=== PATIENT | female | born 1940 | race Caucasian/White ===

== ENCOUNTER → 2016-11-11 | Outpatient (CLI) | payer OTHER ==
[~2016-11-11] VITALS: Ht 167.6 cm; Wt 83.2 kg
[~2016-11-11] MED LIST: ACETAMINOPHEN325 M1 PO; ADDERALL 20 MG20 M1 PO; ADDERALL XR 2020 MG PO; ALDACTONE50 MG PO; ASPIRIN81 M2 PO; ATROVENT INHALER INH; ATROVENT30 ML; ATROVENT30 ML NASAL; B COMPLEX-VITA1 EACH PO; B-100 COMPLEX1 EAC1 PO; BACLOFEN 10 MG10 MG PO; CALCIUM 600 +1 EAC1 PO; CARBAMAZEPINE200 M2 PO; CARVEDILOL6.25 MG PO; CEFTIN500 MG PO; DOXYCYCLINE 10100 M1 PO; DUONEB 2.5-0.5 M3 ML INH; FOLTX1 TAB PO; FUROSEMIDE 40 M40 M1 PO; GLYCOLAX POWDER17 G1 PO; HYDROCODONE-APA1 TA1 PO; KLOR-CON 1010 MEQ PO; LEVOTHYROXIN0.175 MG PO; LEVOXYL25 MCG PO; LISINOPRIL10 MG PO; NITROGLYCERIN0.4 MG SUBLING; NORCO 5-325 TA1 EACH PO; PHENTERMINE H37.5 MG PO; PREDNISOLONE 5 M5 M1 PO; PREDNISONE 1 MG1 M1; PRILOSEC 20 MG20 MG PO; REGLAN 10 MG TA10 M1 PO; SPIRONOLACTONE50 MG PO; TRAZODONE 150150 M1 PO; TRAZODONE HCL PO; VITAMIN D-32000 UNIT PO; VITAMIN E400 UNIT PO; VITAMINC500 PO; ZINC LOZENGE25 MG PO; carbatrol PO
--- NOTE | ~2016-11-11 | H ---
[facility] [place] [address] HISTORY AND PHYSICAL Name: CONSTANTINO KAMINSKI Room #: REG [facility].#: [id number] Admission: 11/11/16 Attend Phys: Alfonzo Vargas MD Discharge: Date of : 38 Report #: [id number] THIS REPORT FOR: //name// CC: RAPHAEL Vargas Jose CABRALES DATE OF SERVICE: 11/11/2016 DATE OF SERVICE: 11/11/2016 Followup visit for low back pain with right lumbar radiculopathy, L4-L5. Patient returns to the pain clinic today and would really like an epidural injection. Unfortunately, because of ____, we cannot proceed with this injection. She has been an excellent responder to therapy. Narcotic does not provide series of injections, only single injections at that time, which typically provide lasting relief. Her last injection was almost a year ago. She reported that she had 80% improvement for months at a time. The pain now was once again returning and is severe enough that activity levels are diminished from that already low level due to her COPD. Her pain is 6/10. She is spending more time sitting. Any walking exacerbates pain. She is on around the clock oxygen due to her severe COPD, followed by Dr. Garcia. Dyspnea on exertion is common. MEDICATIONS: Include levothyroxine, hydrocodone 7.5 q. 6 hours, ____, amphetamine, nitroglycerin, spirolactone, prednisone, carvedilol, polyethylene glycol, ascorbic acid, cholecalciferol, vitamin E, calcium, carbamazepine, trazodone, aspirin Lasix, baclofen, potassium. ALLERGIES: CLONAZEPAM, PREGABALIN AND SPIRIVA. PHYSICAL EXAMINATION: She is pleasant female. Blood pressure 132/82, heart rate 66, respirations 14. BMI is 29. She has oxygen on 2 L. She is able to move from sitting to standing position and ambulate with her cane. Her gait is slow, but steady. She does not appear to be a fall risk. She does become dyspneic pretty quickly. Breathing at rest is comfortable with mild expiratory wheezing. Examination of spine reveals tenderness. Straight leg raising is only mildly positive. Majority of the pain radiates down to the right buttock and down the posterior lateral aspect of the leg consistent with L5-S1. X-rays are dated but shows there is degenerative disk disease of the lumbar spine at multiple levels. She has a small right L5-S1 paracentral disk extrusion extending posterior to the L5 vertebral body, [place] [address] HISTORY AND PHYSICAL Name: CONSTANTINO KAMINSKI Room #: REG [facility].#: [id number] Admission: 11/11/16 Attend Phys: Alfonzo Vargas MD Discharge: Date of : 39 Report #: [id number] offending. ____ she is not a surgical candidate. IMPRESSION: Lumbar radiculopathy related to L5-S1 disk and degenerative disk disease above. RECOMMENDATIONS: Epidural steroid injection. She is an appropriate candidate for all right reasons, we were providing a very useful treatment and therapy that have shown benefit in the past and there are few alternatives. We would like to avoid any opioid medication given her breathing and opioid issues of [place]. Plan is to follow up as soon as possible for epidural steroid injection. By: [id number] Alfonzo Vargas MD /nt
[2016-11-11 12:47] VITALS: BP 132/82
== END ==
LOC: PAIN 07:40
DX: M51.17 Intervertebral disc disorders with radiculopathy, lumbosacral region (principal); J44.9 Chronic obstructive pulmonary disease, unspecified

== ENCOUNTER → 2016-11-21 | Outpatient (CLI) | payer OTHER ==
[~2016-11-21] VITALS: Ht 170.2 cm; Wt 70.8 kg
--- NOTE | ~2016-11-21 | HPC ---
[facility] [place] [address] PAIN MANAGEMENT CONSULTATION Name: CONSTANTINO KAMINSKI [facility] [id number] Admission: 11/21/16 Attend Phys: Alfonzo Vargas MD Discharge: Date of : 39 Report #: [id number] THIS REPORT FOR: //name// CC: Williams Vargas DATE OF SERVICE: 11/21/2016 Followup visit for lumbar radiculopathy on the right, L4-L5 and L5-S1. The patient returns to the pain clinic today for transforaminal epidural injection. Preauthorization was obtained and she is anxious to proceed. She was seen just one week ago on 11/11/2016. There have been no changes in her presentation. The patient reports that her pain intensity is 6, low back, right buttock, right leg. Pain follows into the buttock and into the leg. She has right-sided L5-S1 paracentral disk extrusion extended posteriorly and to the L5 vertebral body, likely to culprit. IMPRESSION: Lumbar radiculopathy secondary to L5-S1 disk herniation, degenerative disk disease. PROCEDURE: Right L5-S1 transforaminal epidural injection under fluoroscopic guidance. DESCRIPTION Of PROCEDURE: It was explained to the patient who has had one injection before with good results, risks and benefits identified. She was taken to the fluoroscopic suite for the procedure. She was placed prone, skin was prepped with ChloraPrep. Skin anesthetized over the L5-S1 neural foramen on the right. Triplanar fluoroscopic views were used to advance the needle into the neural foramen. Then, 1 mL of Omnipaque was injected with excellent epidurogram achieved. This was then followed by 3 mL of 0.5% lidocaine mixed with 80 mg triamcinolone. She tolerated the procedure well, although there was quite a bit of paresthesia into the right leg causing temporary discomfort during the injection, which abated quickly. She was observed in recovery room, discharged with a followup visit planned in 3 months. By: [id number] Alfonzo Vargas MD /nt
[2016-11-21 15:03] VITALS: BP 160/62
== END ==
LOC: PAIN 07:10
DX: M54.16 Radiculopathy, lumbar region (principal); M51.16 Intervertebral disc disorders with radiculopathy, lumbar region; Z87.891 Personal history of nicotine dependence

== ENCOUNTER → 2018-07-16 | Outpatient (CLI) | payer OTHER ==
[~2018-07-16] VITALS: Ht 170.2 cm; Wt 81.6 kg
[~2018-07-16] MED LIST changes: +HYDROCODON-ACE1 EAC7 PO; +IBUPROFEN 200200 M1 PO
--- NOTE | ~2018-07-16 | HPC ---
[facility] [place] [address] PAIN MANAGEMENT CONSULTATION Name: CONSTANTINO KAMINSKI Room #: REG [facility].#: [id number] Admission: 07/16/18 Attend Phys: Alfonzo Vargas MD Discharge: Date of : 39 Report #: [id number] THIS REPORT FOR: //name// CC: Williams Vargas CHIEF COMPLAINT: Right shoulder pain. HISTORY OF PRESENT ILLNESS: I last saw the patient in 11/2016. She is here today with a new problem, pain in her right shoulder. She has been using a cane now for many years. With the use of the cane, I believe that she has likely developed some shoulder arthropathy and complains that she has difficulty performing day-to-day activities and tasks with the right arm due to that pain. She has pain with abduction, internal and external rotation. She can use the right arm in position of function in order to provide hygiene and eating. The pain, however, is intense. It is an 8/10, sharp, stabbing and aching. It is worse as the day goes on and with activities using the arm. MEDICATIONS: Levothyroxine, omeprazole, nitroglycerin, spironolactone, Advil 600 mg 4 times daily, prednisone 5 mg two tablets daily, carvedilol, GlycoLax, vitamin C, vitamin D, vitamin E, calcium carbonate, carbamazepine, aspirin, Lasix, baclofen, potassium. ALLERGIES: CLONAZEPAM, PREGABALIN, and SPIRIVA. PAST MEDICAL HISTORY: Hypertension, COPD, diffuse osteoarthritis of the spine and multiple joints including shoulders, hips and knees with pain in all. PAST SURGICAL HISTORY: Cholecystectomy, appendectomy, tonsillectomy, adenoidectomy, D and C and hysterectomy. SOCIAL HISTORY: She denies use of tobacco, quitting in 2005. She has not worked since 1997. She is . Her is with her and supportive today. PHYSICAL EXAMINATION: She is pleasant female. VITAL SIGNS: 5 feet 7 inches, 180 pounds, BMI 28.2, blood pressure 157.58, heart rate 68, respirations 14. The pupils are equal, round, and react to light. EOMs are intact. Mucous membranes are moist. NECK: Supple. CHEST: Clear. CARDIAC: Rhythm regular. MUSCULOSKELETAL: Reveals pain in the right shoulder with internal and external rotation. She has localized tenderness there. Significant pain with abduction. Most of the pain is anterior in the shoulder joint. Pain intensity is 8/10 with exam. 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 RECOMMENDATIONS: I do not have x-rays, but I am willing to provide her with an injection today for symptom management. Procedure, risks, and benefits were explained. She would like to proceed. PROCEDURE: Right shoulder injection under fluoroscopic guidance. She was taken to fluoroscopic suite, placed supine. Skin was prepped with ChloraPrep. A 25-gauge needle was gently advanced into the shoulder joint with the advantage of fluoroscopic guidance. I did not use Omnipaque for the injection joint. The needle felt to be well within the joint space, negative aspiration. I gently injected total of 4 mL of 0.5% bupivacaine mixed with 40 mg of triamcinolone. She tolerated the procedure well. Pain score down to 1 or 2 at discharge. Follow up as needed. No medication ordered. By: [id number] Alfonzo Vargas MD /nt
[2018-07-16 13:18] VITALS: BP 157/58
--- NOTE | 2018-07-16 13:46 | NUR ---
Pain Clinic Assessment: 1. History of Osteoarthritis: BACK History of Rheumatoid Arthritis: NO 2. Height: 5 ft. 7 in. 170.2 cm. Weight: 180.0 lb. oz. 81.648 kg. Patient's BMI: 28.2 3. Vital Signs: BP: 157/58 Pulse: 68 Resp: 14 Temp: 02 Sat: 97 ECG Mon: 4. Pain Intensity: 8 RIGHT SHOULDER,6 BACK 5. Fall Risk: Dizziness: N Needs help standing or walking: Y Fallen in the last 3 months: N Fall risk comments: 6. Patient on Blood Thinner: None 7. History of Hypertension: N 8. Opioid Therapy greater than 6 weeks: N Opiate Contract Signed: 9. Risk Assessment Tool Provided: LOW RISK 0/3 10. Functional Assessment Tool: 37/ 11. Recreational Drug Use: Never Drug Type: Tobacco Use: Former Smoker Tobacco Type: Amount or Packs/day: How Many Years: Alcohol Use: No Frequency: Quant:
== END | disposition home or self-care (01) ==
LOC: PAIN 07:08
DX: M12.811 Other specific arthropathies, not elsewhere classified, right shoulder (principal); I10 Essential (primary) hypertension; J44.9 Chronic obstructive pulmonary disease, unspecified; Z90.49 Acquired absence of other specified parts of digestive tract; Z98.890 Other specified postprocedural states; Z90.710 Acquired absence of both cervix and uterus; Z87.891 Personal history of nicotine dependence; Z88.8 Allergy status to other drugs, medicaments and biological substances; Z79.899 Other long term (current) drug therapy; Z79.82 Long term (current) use of aspirin

== ENCOUNTER → 2018-12-07 | Outpatient (CLI) | payer OTHER ==
[~2018-12-07] VITALS: Ht 170.2 cm; Wt 79.4 kg
[~2018-12-07] MED LIST changes: +ADDERALL 20 MG20 MG PO; +TRAZODONE HCL100 MG PO
[2018-12-07 10:00] VITALS: BP 128/46
--- NOTE | 2018-12-07 10:19 | NUR ---
Pain Clinic Assessment: 1. History of Osteoarthritis: BACK History of Rheumatoid Arthritis: NO 2. Height: 5 ft. 7 in. 170.2 cm. Weight: 175.0 lb. oz. 79.380 kg. Patient's BMI: 27.4 3. Vital Signs: BP: 128/46 Pulse: 65 Resp: 14 Temp: 02 Sat: 96 ECG Mon: 4. Pain Intensity: 3 took meds this am 5. Fall Risk: Dizziness: N Needs help standing or walking: Y Fallen in the last 3 months: N Fall risk comments: 6. Patient on Blood Thinner: None 7. History of Hypertension: Y 8. Opioid Therapy greater than 6 weeks: N Opiate Contract Signed: 9. Risk Assessment Tool Provided: LOW RISK 0 10. Functional Assessment Tool: 11. Recreational Drug Use: Never Drug Type: Tobacco Use: Former Smoker Tobacco Type: Amount or Packs/day: How Many Years: Alcohol Use: No Frequency: Quant:
--- NOTE | 2018-12-08 09:00 | HPC ---
[facility] [address] [place] [address] PAIN MANAGEMENT CONSULTATION Name: CONSTANTINO KAMINSKI Room #: REG PH[facility] Valenzuela#: [id number] Admission: 12/07/18 ������������������ Attend Phys: Abril Rutherford Discharge: ������������������ Date of : 39 Report #: [id number] THIS REPORT FOR: //name// CC: Abril Rutherford Williams Banksy CHIEF COMPLAINT: Low back pain, lumbar radiculopathy. HISTORY OF PRESENT ILLNESS: This is a very pleasant 78-year-old female who returns to the pain clinic today for refill of her medications and to discuss a possible epidural steroid injection. She tells me that her pain score is 3 today with her medications, though later in the day it is higher. She tells me most of her pain is in her lower back that radiates down her right leg into her ankle. She does not have pain in her left leg. This pain in her right leg is a sharp, achy pain that is worse with walking and movement and worse in the morning and medications and lying down make it better. She tells me that her right shoulder injection that Dr. Vargas did in July did relieve quite a bit of that pain that she was experiencing. She had 75% relief she thinks in that shoulder for at least 3 months. The patient tells me that she has been in the hospital a couple times recently for problems with her congestive heart failure related to changes in her medications. She has had several medication changes recently involving her Lasix. She thinks that she is finally stable with her health issues. She continues to wear oxygen at 3-4 liters depending on her activity. While she was in the hospital, she did have an epidural by a physician at [facility]. She tells me though that epidural, which was greater than a month ago, did not help her pain at all. It was a midline lumbar epidural per her report. ALLERGIES: SPIRIVA, KLONOPIN, LAMISIL and LYRICA. CURRENT LIST OF MEDICATIONS: Adderall 20 mg t.i.d., trazodone 100 mg at bedtime, hydrocodone 5/325 b.i.d., ibuprofen p.r.n., Synthroid 175 mcg daily, omeprazole 20 mg daily, prednisone 5 mg daily, carvedilol 6.25 b.i.d., MiraLax, vitamin C, vitamin D, vitamin E, calcium, oxcarbazepine 400 mg b.i.d., aspirin, Lasix 20 mg b.i.d., baclofen 10 mg p.r.n. and potassium. PQRS: 1. She has a history of osteoarthritis in her lumbar spine. Denies any rheumatoid arthritis. 2. Height is 5 feet 7 inches, weight is 175 and BMI is 27. 3. VITAL SIGNS: Blood pressure 128/46, pulse is 64, respirations 14 and oxygen level is 96. 4. Pain score is 3/10. 5. Fall risk. Denies dizziness. Does need help walking and she is in a wheelchair today and has not fallen in the last [address] [address] PAIN MANAGEMENT CONSULTATION Name: CONSTANTINO KAMINSKI Room #: REG [facility] Nicolas#: [id number] Admission: 12/07/18 ������������������ Attend Phys: Abril Rutherford Discharge: ������������������ Date of : 39 Report #: [id number] 6. The patient is not on any blood thinners, does take medicine for hypertension. 7. Opioid therapy is greater than 6 weeks. We will have her sign an opioid contract today. Her risk assessment tool is low. Functional assessment is 37/70. 8. Recreational drug use, she denies. She is a former smoker and does not drink alcohol. PHYSICAL EXAMINATION: GENERAL: This is a very pleasant female who is well-developed and well-nourished. She appears her stated age. Placing her pain score today at 3/10. She is alert and oriented. HEENT: Normocephalic and atraumatic. Extraocular eye muscles are intact. Mucous membranes are moist. Hearing is adequate. Wearing 3l nasal cannal oxygen. NECK: Without JVD or adenopathy. MUSCULOSKELETAL: She is able to move from sitting to standing position with the assistance of the chair. She does have a cane that she uses for ambulation, though she is in a wheelchair today. She has tenderness in her spine. Her straight leg raising is mildly positive. Her pain radiates from her right buttock and right hip down the posterolateral aspect of the right leg consistent with the L5-S1 dermatomal distribution. Pain does not go past her ankle. She has no pain on the left leg today. The patient's gait is slow and steady, though she is in a wheelchair for most of her visit today. Her lower extremity strength judged to be 4/5 bilaterally. IMPRESSION: 1. Lumbar radiculopathy, L5-S1, greater on the right than the left. 2. Degenerative disk disease. 3. Right shoulder pain. 4. Chronic obstructive pulmonary disease, on 3 liters nasal cannula. We reviewed the fact that opiate medications are being used to provide analgesia adequate to support activities of daily living, not attempting to achieve a specific pain score on the 0-10 Visual Analog Scale. The current opiate medications are providing sufficient analgesia to allow the patient to participate in activities of daily living. The patient is not exhibiting any aberrant behavior suggestive of drug diversion. The patient is not having any adverse reactions to medications. The patient is not suffering from daytime somnolence or mental acuity changes. The patient is managing opiate-induced constipation with appropriate [id number] agents and dietary considerations. The patient was counseled on concern for caution with operating a motor vehicle while using opiate medications. A physical exam was performed and the patient's functional status was evaluated. All patients with back pain were advised against the bed rest greater than [address] [address] PAIN MANAGEMENT CONSULTATION Name: CONSTANTINO KMAINSKI Room #: REG [facility]..#: [id number] Admission: 12/07/18 ������������������ Attend Phys: Abril Rutherford Discharge: ������������������ Date of : 39 Report #: [id number] days and were advised to return to normal activities. Pain score assessment was noted and the treatment plan was reviewed with the patient. All current medications, both prescribed and OTC were reviewed and reconciled on the electronic medical record. Tobacco screening was accomplished and smoking cessation was advised when indicated. BMI was noted and diet/exercise modification was recommended for all patients following outside normal parameters. I reviewed with the patient today their responsibilities to safeguard prescription medications, reviewed their responsibility to utilize medications only as prescribed by the physician. They are to seek and receive pain medications only from 1 physician group ([facility]). They are to use 1 pharmacy and keep the clinic informed if they change pharmacies. Their responsibilities include making followup visits in a timely fashion and to avoid abrupt discontinuation of medication usage. Their responsibilities further include bringing their medications (bottles from the pharmacy with residual pills) to the visit for possible confirmation of pill counts and the patient understands it is their responsibility to submit to random drug screens to ensure both that the medications prescribed are present, and that no other controlled substances are present. All prescriptions provided today were generated electronically. PLAN: 1. We discussed treatment options with the patient today. The patient would like a refill of her medications. She currently takes hydrocodone 5/325 about 2 times a day to help relieve some of her ongoing pain issues. Scripts given for #60 for today and 4-week release. I did have the patient sign an opioid agreement since it seems like she has been taking this now on a daily basis for greater than 6 months. She verbalizes understanding. 2. The patient wishes to have an epidural. She has found these very beneficial in the past, though the one that she had most recently at [facility] did not relieve her pain that is in her right leg radiating down the L5-S1 distribution. After discussion with Dr. Vargas and our examination, plan to proceed with authorization for a right transforaminal epidural steroid injection at the L5 dermatomal distribution. We will seek authorization and an appointment will be set up for this procedure. 3. Dr. Alfonzo Vargas did come and collaborate care today and see the patient. ��������������������������������������������� <ELECTRONICALLY SIGNED> ���������������������������������������� By: Abril Rutherford ��������������������������������������������� 12/08/18 0900 [id number] Abril Rutherford /nt
== END ==
LOC: PAIN 10-12 06:51
DX: M51.16 Intervertebral disc disorders with radiculopathy, lumbar region (principal); M25.511 Pain in right shoulder; J44.9 Chronic obstructive pulmonary disease, unspecified; Z79.899 Other long term (current) drug therapy

== ENCOUNTER → 2018-12-24 | Outpatient (CLI) | payer OTHER ==
[~2018-12-24] VITALS: Ht 170.2 cm; Wt 77.4 kg
[~2018-12-24] MED LIST changes: +MAGOX 400400 MG PO; +MUCINEX600 MG PO
[2018-12-24 10:43] VITALS: BP 156/54
--- NOTE | 2018-12-24 10:50 | NUR ---
Pain Clinic Assessment: 1. History of Osteoarthritis: BACK History of Rheumatoid Arthritis: NO 2. Height: 5 ft. 7 in. 170.2 cm. Weight: 170.6 lb. oz. 77.384 kg. Patient's BMI: 26.7 3. Vital Signs: BP: 156/54 Pulse: 57 Resp: 16 Temp: 02 Sat: 998 ECG Mon: 4. Pain Intensity: 4 5. Fall Risk: Dizziness: N Needs help standing or walking: Y Fallen in the last 3 months: N Fall risk comments: 6. Patient on Blood Thinner: None 7. History of Hypertension: Y 8. Opioid Therapy greater than 6 weeks: N Opiate Contract Signed: 9. Risk Assessment Tool Provided: LOW RISK 0 10. Functional Assessment Tool: 11. Recreational Drug Use: Never Drug Type: Tobacco Use: Former Smoker Tobacco Type: Amount or Packs/day: How Many Years: Alcohol Use: No Frequency: Quant:
--- NOTE | 2019-01-05 17:25 | HPC ---
[facility] [place] [address] PAIN MANAGEMENT CONSULTATION Name: CONSTANTINO KAMINSKI Room #: REG [facility].#: [id number] Admission: 12/24/18 ������������������ Attend Phys: Alfonzo Vargas MD Discharge: ������������������ Date of : 39 Report #: [id number] THIS REPORT FOR: //name// CC: Williams Vargas DATE OF SERVICE: 12/24/2018 REASON FOR VISIT: Followup visit for chronic low back pain with radiculopathy on the right L5-S1 distribution. HISTORY OF PRESENT ILLNESS: The patient presents to clinic today complaining of pain across her low back with an L5-S1 radicular component. She had an epidural injection while in [facility]. It was midline injection provided very little relief. She is here today for a transforaminal injection, which I believe will provide more relief with the medication, presented more to the lateral recess. I discussed the procedure with her in some detail. I reviewed her x-ray studies. She has multilevel degenerative changes from the study that we have available. As far back as 2014, there was a probable small right L5-S1 paracentral disk extrusion. This was likely at that time cause of some right-sided radiculopathy. The pain is now worsening and is affecting her day-to-day activities including weightbearing. She scores the intensity of pain is 4/10. PQRS REVIEW: 1. History of osteoarthritis particularly lumbar spondylosis and low back. 2. BMI of 26.7. 3. She does not have hypertension, but has a history of treatment with Dr. Fields. 4. She is on no blood thinners. 5. She has completed an opioid risk tool scoring 0. 6. She is on opioid therapy and has completed an opioid risk tool. She uses very little hydrocodone 5/325 no more than one to two tablets daily. She denies side effects, carefully safeguards her medications. 7. She denies use of tobacco or alcohol. PHYSICAL EXAMINATION: GENERAL: She is a pleasant female in a wheelchair. VITAL SIGNS: Her blood pressure is 156/54, heart rate 57, and respirations 16. BMI is 26.7. She has difficulty removing sitting to standing. She has significant range of motion limitations in the lumbar spine with pain in forward flexion, extension, and rotation. There is some slight scoliosis. Tenderness across the lumbosacral segment was present. Straight leg raising reproduces pain in the right hip and down the leg in the L5-S1 distribution. [address] [address] PAIN MANAGEMENT CONSULTATION Name: CONSTANTINO KAMINSKI Room #: REG [facility]#: [id number] Admission: 12/24/18 ������������������ Attend Phys: Alfonzo Vargas MD Discharge: ������������������ Date of : 38 Report #: [id number] IMPRESSION: L5-S1 radiculopathy. PROCEDURE: L5-S1 transforaminal epidural injection. DESCRIPTION OF PROCEDURE: She was taken to fluoroscopic suite, placed prone, skin prepped with ChloraPrep. Skin anesthetized over the L5-S1 interspace. A 22-gauge Tuohy epidural needle advanced into the neural foramen using triplanar fluoroscopic views. There was no blood on CSF aspirate. A 1 mL of Omnipaque was injected. Good spread of dye observed in the epidural space followed by 3 mL of 0.5% lidocaine mixed with 80 mg triamcinolone. She tolerated the procedure well and was observed for 45 minutes and discharged. Followup visit planned as needed. ��������������������������������������������� <ELECTRONICALLY SIGNED> ���������������������������������������� By: Alfonzo Vargas MD ��������������������������������������������� 01/05/19 1725 [id number] Alfonzo Vargas MD /nt
== END | disposition home or self-care (01) ==
LOC: PAIN 06:55
DX: M51.16 Intervertebral disc disorders with radiculopathy, lumbar region (principal); G89.29 Other chronic pain; M19.90 Unspecified osteoarthritis, unspecified site; M47.26 Other spondylosis with radiculopathy, lumbar region; Z87.891 Personal history of nicotine dependence; Z88.8 Allergy status to other drugs, medicaments and biological substances; Z79.899 Other long term (current) drug therapy; Z79.82 Long term (current) use of aspirin

== ENCOUNTER → 2019-01-25 | Outpatient (CLI) | payer OTHER ==
[~2019-01-25] VITALS: Ht 170.2 cm; Wt 76.4 kg
--- NOTE | ~2019-01-25 | HPC ---
[facility] [place] [address] PAIN MANAGEMENT CONSULTATION Name: CONSTANTINO KAMINSKI Room #: REG Kirsty Nuno.#: [id number] Admission: 01/25/19 ������������������ Attend Phys: Alfonzo Vargas MD Discharge: ������������������ Date of : 38 Report #: [id number] THIS REPORT FOR: //name// CC: Williams Vargas DATE OF SERVICE: 01/25/2019 Followup visit for chronic low back pain with radiculopathy. The patient returns to pain clinic today with her . She is in a wheelchair. She received an epidural injection in our clinic on 12/24/2018 and for 2 weeks, she had very little pain. The pain is now gradually returning and once again in her low back radiating into her right hip and down the right leg all the way to the ankle following an L5-S1 distribution. I reviewed with her the injection. I do think there is some diagnostic information. I believe that we were able to provide good relief by anesthetizing in providing some triamcinolone around the L5 nerve root. Spread of dye also suggest we had good coverage of the S1 nerve root as well. This is the distribution of her pain. We may repeat the injection within the next month. We talked about the Medicare guidelines for epidural injections and I think that for going to perform them safely, she can receive no more than three injections in a six-month period. She is on opioid medication and we have her signed an opioid agreement. She is careful with the medicine and her MME is 10. She was given additional prescriptions today for hydrocodone 5/325. Release date prescription also for four weeks. She will carefully safeguard the medication. She denies side effects. She is grateful for the pain relief it provides and for the improvement in her day-to-day function. PQRS REVIEW: 1. History of osteoarthritis with spondylosis. 2. BMI of 26.7. 3. No history of hypertension or antihypertensives. 4. No blood thinners. 5. Opioid risk score is 0. 6. She has signed an opioid agreement and we have checked her use on the prescription drug monitoring program. 7. Denies use of tobacco and alcohol. 8. She is a fall risk and is weak, using a wheelchair for mobility. PHYSICAL EXAMINATION: Pleasant, alert and oriented, without signs of [facility] [address] [address] PAIN MANAGEMENT CONSULTATION Name: CONSTANTINO KAMINSKI [facility] [id number] Admission: 01/25/19 ������������������ Attend Phys: Alfonzo Vargas MD Discharge: ������������������ Date of : 39 Report #: [id number] depression, anxiety or overmedication. Blood pressure is 132/50, heart rate 60, respirations 14, BMI 26.4. She moves from sitting to standing position with difficulty or her gait is weak. There is tenderness across the lumbosacral spine where there is mild scoliosis. Straight leg raising produces pain in the right hip as far as the L5-S1 distribution at the ankle involving the lateral malleolus. Sensation is normal. IMPRESSION: Chronic low back pain with radiculopathy involving L5-S1. RECOMMENDATIONS: 1. Continue hydrocodone carefully as described above. 2. Follow up for repeat epidural injection in the next month. 3. Continue with daily efforts to walk and strengthen low back per previous discussions. ��������������������������������������������� ���������������������������������������� By: ��������������������������������������������� [id number] Alfonzo Vargas MD /nt
[2019-01-25 10:51] VITALS: BP 132/50
--- NOTE | 2019-01-25 11:12 | NUR ---
Pain Clinic Assessment: 1. History of Osteoarthritis: BACK History of Rheumatoid Arthritis: NO 2. Height: 5 ft. 6 in. 170.2 cm. Weight: 168.4 lb. oz. 76.386 kg. Patient's BMI: 26.4 3. Vital Signs: BP: 132/50 Pulse: 60 Resp: 14 Temp: 02 Sat: 95 ECG Mon: 4. Pain Intensity: 7 5. Fall Risk: Dizziness: N Needs help standing or walking: Y Fallen in the last 3 months: N Fall risk comments: 6. Patient on Blood Thinner: None 7. History of Hypertension: Y 8. Opioid Therapy greater than 6 weeks: N Opiate Contract Signed: 9. Risk Assessment Tool Provided: LOW RISK 0 10. Functional Assessment Tool: 11. Recreational Drug Use: Never Drug Type: Tobacco Use: Former Smoker Tobacco Type: Amount or Packs/day: How Many Years: Alcohol Use: No Frequency: Quant:
== END ==
LOC: PAIN 06:51
DX: M47.27 Other spondylosis with radiculopathy, lumbosacral region (principal); Z68.26 Body mass index [BMI] 26.0-26.9, adult

== ENCOUNTER → 2019-02-08 | Outpatient (CLI) | payer OTHER ==
[~2019-02-08] VITALS: Ht 167.6 cm; Wt 75.6 kg
--- NOTE | ~2019-02-08 | HPC ---
[facility] [address] [place] [address] PAIN MANAGEMENT CONSULTATION Name: CONSTANTINO KAMINSKI [facility] #: REG [facility] [id number] Admission: 02/08/19 ������������������ Attend Phys: Alfonzo Vargas MD Discharge: ������������������ Date of : 39 Report #: [id number] THIS REPORT FOR: //name// CC: Williams Vargas DATE OF SERVICE: 02/08/2019 Followup visit for chronic lumbar radiculopathy. The patient returns to pain clinic today for repeat epidural injection. She responded very nicely to an injection performed in December. I saw her on 01/25/2019. We reviewed her injection and her response. She has elected to return today for another injection under the Medicare guideline. We discussed the injection and reviewed her response. Pain remains similar. It is in her low back, radiates to her right hip. Overall, intensity is down somewhat from before, but she still has daily pain. She is limited in her mobility. Pain is exacerbated by sitting and walking. She is limited by her cardiopulmonary conditions and requires oxygen. PQRS review from 01/25 less than 2 weeks ago was reviewed. There have been no significant changes. PHYSICAL EXAMINATION: She is pleasant, alert and oriented. She is in a wheelchair. Her blood pressure is 140/56, heart rate 59, respirations 14. Her O2 sat is 97. Her respiratory rate 14. She is able to move independently from the chair to the examining table and can get on the examining table without significant difficulty, but she does need some assistance. Her chest is clear. Breath sounds are distant. Cardiac rhythm is regular. Musculoskeletal reveals tenderness across the lumbosacral spine. There is pain that emanates from the right hip through the right leg and follows an L5-S1 distribution quite consistently into the leg and foot. Straight leg raising is positive for this pain. IMPRESSION: Chronic low back pain with radiculopathy, right L5-S1. RECOMMENDATIONS: Repeat L5-S1 transforaminal epidural injection under fluoroscopic guidance. After informed consent, she was taken to fluoroscopic suite. She was placed prone, skin prepped with ChloraPrep. Skin was anesthetized over the L5-S1 neural foramen. Using triplanar fluoroscopic views, I advanced needle into the neural foramen. There was no blood or CSF aspirated. A 0.25 mL of Omnipaque [address] [address] PAIN MANAGEMENT CONSULTATION Name: CONSTANTINO KAMINSKI Room #: REG PHIL Valenzuela#: [id number] Admission: 02/08/19 ������������������ Attend Phys: Alfonzo Vargas MD Discharge: ������������������ Date of : 39 Report #: [id number] was injected and excellent epidurogram was achieved as well as the tracing of the L5 and S1 nerve roots in the epidural space. It was then followed by 3 mL of 0.5% lidocaine mixed with 60 mg of triamcinolone. She tolerated the procedure well. She was observed for 45 minutes in recovery room and there were no complications. Followup visit is planned as needed. ��������������������������������������������� ���������������������������������������� By: ��������������������������������������������� [id number] Alfonzo Vargas MD /nt
[2019-02-08 09:49] VITALS: BP 140/56
--- NOTE | 2019-02-08 09:58 | NUR ---
Pain Clinic Assessment: 1. History of Osteoarthritis: BACK History of Rheumatoid Arthritis: NO 2. Height: 5 ft. 6 in. 167.6 cm. Weight: 166.6 lb. oz. 75.569 kg. Patient's BMI: 26.9 3. Vital Signs: BP: 140/56 Pulse: 59 Resp: 14 Temp: 02 Sat: 97 ECG Mon: 4. Pain Intensity: 3 5. Fall Risk: Dizziness: N Needs help standing or walking: Y Fallen in the last 3 months: N Fall risk comments: 6. Patient on Blood Thinner: None 7. History of Hypertension: Y 8. Opioid Therapy greater than 6 weeks: N Opiate Contract Signed: 9. Risk Assessment Tool Provided: LOW RISK 0 10. Functional Assessment Tool: 11. Recreational Drug Use: Never Drug Type: Tobacco Use: Former Smoker Tobacco Type: Amount or Packs/day: How Many Years: Alcohol Use: No Frequency: Quant:
== END | disposition home or self-care (01) ==
LOC: PAIN 06:49
DX: M54.17 Radiculopathy, lumbosacral region (principal); G89.29 Other chronic pain; Z87.891 Personal history of nicotine dependence; Z99.3 Dependence on wheelchair; Z88.8 Allergy status to other drugs, medicaments and biological substances; Z79.82 Long term (current) use of aspirin; Z79.899 Other long term (current) drug therapy

== ENCOUNTER → 2019-05-31 | Outpatient (CLI) | payer OTHER ==
[~2019-05-31] VITALS: Ht 167.6 cm; Wt 73.5 kg
[~2019-05-31] MED LIST changes: +NORCO 5-325 TA1 EAC2 PO
[2019-05-31 11:26] VITALS: BP 118/54
--- NOTE | 2019-05-31 11:41 | NUR ---
Pain Clinic Assessment: 1. History of Osteoarthritis: BACK History of Rheumatoid Arthritis: NO 2. Height: 5 ft. 6 in. 167.6 cm. Weight: 162.0 lb. oz. 73.483 kg. Patient's BMI: 26.2 3. Vital Signs: BP: 118/54 Pulse: 64 Resp: 14 Temp: 02 Sat: 96 ECG Mon: 4. Pain Intensity: 7 5. Fall Risk: Dizziness: N Needs help standing or walking: Y Fallen in the last 3 months: N Fall risk comments: 6. Patient on Blood Thinner: None 7. History of Hypertension: Y 8. Opioid Therapy greater than 6 weeks: N Opiate Contract Signed: 9. Risk Assessment Tool Provided: LOW RISK 0 10. Functional Assessment Tool: 11. Recreational Drug Use: Never Drug Type: Tobacco Use: Former Smoker Tobacco Type: Cigarettes Amount or Packs/day: 2 How Many Years: 50 Alcohol Use: No Frequency: Quant:
== END ==
LOC: PAIN 06:45
DX: M54.17 Radiculopathy, lumbosacral region (principal); J44.9 Chronic obstructive pulmonary disease, unspecified; M79.605 Pain in left leg; Z79.899 Other long term (current) drug therapy

== ENCOUNTER → 2019-06-10 | Outpatient (CLI) | payer OTHER ==
[~2019-06-10] VITALS: Ht 167.6 cm; Wt 74.5 kg
--- NOTE | ~2019-06-10 | HPC ---
[facility] [place] [address] PAIN MANAGEMENT CONSULTATION Name: CONSTANTINO KAMINSKI Room #: REG [facility] Nicolas#: [id number] Admission: 06/10/19 Attend Phys: Alfonzo Vargas MD Discharge: Date of : 39 Report #: [id number] THIS REPORT FOR: //name// CC: Williams Vargas DATE OF SERVICE: 06/10/2019 Followup visit for epidural transforaminal L5-S1. The patient was seen in the clinic on 05/31/2019. She has returned today for the right L5-S1 transforaminal epidural injection. We discussed the procedure with significant relief from previous injections. She is ready for her injection today. There have been no significant changes in her condition since last visit. DIAGNOSIS: L5-S1 radiculopathy. PROCEDURE: L5-S1 transforaminal epidural injection. After informed consent, she was taken to the fluoroscopic suite and placed prone. Skin was prepped with ChloraPrep. Skin was anesthetized over the L5-S1 neural foramen on the right. Using triplanar fluoroscopic views, I advanced needle into position. There was no blood or CSF aspirated. A 0.25 mL of Omnipaque was injected. The needle was repositioned twice until we determined and obtained an excellent epidurogram and some medicine spreading into the epidural space and along the L5 nerve root. This was then followed by 3 mL of 0.5% lidocaine mixed with 60 mg of triamcinolone. She tolerated the procedure with some discomfort. There were no paresthesias but pressure sensation as medicine was injected into the epidural space. Needle was removed. She was observed for 45 minutes and discharged. There were no complications. Follow up as needed. By: [id number] Alfonzo Vargas MD /nt
[2019-06-10 15:21] VITALS: BP 153/59
--- NOTE | 2019-06-10 15:34 | NUR ---
Pain Clinic Assessment: 1. History of Osteoarthritis: BACK History of Rheumatoid Arthritis: NO 2. Height: 5 ft. 6 in. 167.6 cm. Weight: 164.2 lb. oz. 74.481 kg. Patient's BMI: 26.5 3. Vital Signs: BP: 153/59 Pulse: 67 Resp: 14 Temp: 02 Sat: 95 ECG Mon: 4. Pain Intensity: 7 5. Fall Risk: Dizziness: N Needs help standing or walking: Y Fallen in the last 3 months: N Fall risk comments: 6. Patient on Blood Thinner: None 7. History of Hypertension: Y 8. Opioid Therapy greater than 6 weeks: N Opiate Contract Signed: 12/07/18 9. Risk Assessment Tool Provided: LOW RISK 0 10. Functional Assessment Tool: 11. Recreational Drug Use: Never Drug Type: Tobacco Use: Former Smoker Tobacco Type: Cigarettes Amount or Packs/day: 2 1/2 ppd How Many Years: 50 Alcohol Use: No Frequency: Quant:
== END | disposition home or self-care (01) ==
LOC: PAIN 07:01
DX: M54.17 Radiculopathy, lumbosacral region (principal); Z87.891 Personal history of nicotine dependence; Z88.8 Allergy status to other drugs, medicaments and biological substances; Z79.899 Other long term (current) drug therapy; Z79.82 Long term (current) use of aspirin; Z98.890 Other specified postprocedural states

== ENCOUNTER → 2019-07-29 | Outpatient (CLI) | payer OTHER ==
[~2019-07-29] VITALS: Ht 167.6 cm; Wt 74.3 kg
[~2019-07-29] MED LIST changes: +ZPAK PO
--- NOTE | ~2019-07-29 | HPC ---
[facility] [address] [address] PAIN MANAGEMENT CONSULTATION Name: CONSTANTINO KAMINSKI Room #: REG PHIL Reina.#: [id number] Admission: 07/29/19 Attend Phys: Alfonzo Vargas MD Discharge: Date of : 39 Report #: [id number] THIS REPORT FOR: //name// CC: Williams Vargas DATE OF SERVICE: 07/29/2019 Followup visit for chronic pain and medication management. The patient returns to pain clinic today complaining of pain, radiating into the right leg. She has chronic radiculopathy. She describes her pain as 2 separate areas right hip and right leg, but they appeared to be combination. From the right hip, it radiates down into the ankle. She scores it as a 7/10, sharp, and constant. It is worse by sitting and walking. She gets relief from medication and I have agreed to continue to provide for her [place] 5/325, 90 tablets over the course of the next 3 months. PQRS REVIEW: 1. Positive for spondylosis and arthritis of the hips and knees. Her BMI is 26. Her blood pressure 140/50, heart rate 61, respirations 14, O2 sat 94, and pain intensity is 7. She needs help walking and standing, but denies falls within the last 3 months. She is on no blood thinning medications, but takes medication for blood pressure, provided for her by her primary care physician that is Dr. Williams Fields. I reviewed all medications with her today before discharge and they were reconciled. She has signed an opioid contract with us, last signed in 12/2018 and is considered at low risk by the opioid risk tool. She has functional assessment score of 39/70, which is fair. She denies tobacco and alcohol. IMPRESSION: Chronic low back pain with radiculopathy following an L5-S1. She has x-ray evidence of an L5-S1 disk impinging upon the S1 nerve root. RECOMMENDATION: She does not want an injection. I have agreed to provide medications for the time being. We will see her back as needed in the next 3 months. I discussed with her the importance of safeguarding all medications. I reviewed her prescription drug monitoring program and I will perform urine drug screens in the future at my discretion. By: [id number] Alfonzo Vargas MD /nt
[2019-07-29 13:27] VITALS: BP 140/50
--- NOTE | 2019-07-29 13:48 | NUR ---
Pain Clinic Assessment: 1. History of Osteoarthritis: BACK History of Rheumatoid Arthritis: NO 2. Height: 5 ft. 6 in. 167.6 cm. Weight: 163.8 lb. oz. 74.299 kg. Patient's BMI: 26.5 3. Vital Signs: BP: 140/50 Pulse: 61 Resp: 14 Temp: 02 Sat: 94 ECG Mon: 4. Pain Intensity: 7 5. Fall Risk: Dizziness: N Needs help standing or walking: Y Fallen in the last 3 months: N Fall risk comments: 6. Patient on Blood Thinner: None 7. History of Hypertension: Y 8. Opioid Therapy greater than 6 weeks: N Opiate Contract Signed: 12/07/18 9. Risk Assessment Tool Provided: LOW RISK 1 10. Functional Assessment Tool: 11. Recreational Drug Use: Never Drug Type: Tobacco Use: Former Smoker Tobacco Type: Cigarettes Amount or Packs/day: How Many Years: Alcohol Use: No Frequency: Quant:
== END ==
LOC: PAIN 06:46
DX: M54.16 Radiculopathy, lumbar region (principal); Z79.899 Other long term (current) drug therapy; Z88.8 Allergy status to other drugs, medicaments and biological substances

== ENCOUNTER → 2019-08-17 | Outpatient (CLI) | payer OTHER | LOC: SJCVC 11:06 | DX: I21.29 ST elevation (STEMI) myocardial infarction involving other sites (principal); R94.31 Abnormal electrocardiogram [ECG] [EKG]; I11.0 Hypertensive heart disease with heart failure; I50.9 Heart failure, unspecified; E78.5 Hyperlipidemia, unspecified; E03.9 Hypothyroidism, unspecified; G20 Parkinson's disease; J44.9 Chronic obstructive pulmonary disease, unspecified; Z79.899 Other long term (current) drug therapy ==

== ENCOUNTER → 2020-01-13 | Outpatient (CLI) | payer OTHER ==
[~2020-01-13] VITALS: Ht 165.1 cm; Wt 71.0 kg
[~2020-01-13] MED LIST changes: +ROBITUSSIN15 MG/5 ML PO
--- NOTE | ~2020-01-13 | HPC ---
[facility] [place] [address] PAIN MANAGEMENT CONSULTATION Name: CONSTANTINO KAMINSKI Room #: REG [facility].#: [id number] Admission: 01/13/20 Attend Phys: Alfonzo Vargas MD Discharge: Date of : 39 Report #: [id number] THIS REPORT FOR: cc: Raphael Fields MD, Bernard O. MD Morgan, Richard L. MD ~ CC: RAPHAEL Vargas DATE OF SERVICE: 01/13/2020 REASON FOR VISIT: Followup visit for chronic low back pain with radiculopathy. HISTORY OF PRESENT ILLNESS: The patient returns to pain clinic today with her . I provided with pain medication under terms of written opioid agreement. She uses it cautiously and carefully. Usually, no more than 1-2 tablets of [place] 5/325 daily. She has taken it up to 3 times a day and I have agreed to renew her prescription for her today. What she is really here for is an epidural injection, but given her current insurance, she cannot receive the injection on the day of visit. She will need to return due to her Medicare Advantage Plan. She has had good relief from epidural injections performed under fluoroscopic guidance using a right L5-S1 transforaminal approach. Today, her pain is a 7 at its worst. PQRS REVIEW: Positive for spondylosis and osteoarthritis of hips and knees. She has a BMI of 26.1, blood pressure 117/46, heart rate 64, respirations 16, pain intensity is a 3-4 and a 7 at its worst. She has not fallen. She is in a wheelchair and she uses good caution in transferring. She has hypertension and is under treatment. She is on no blood thinners. She is on an opioid agreement, last signed in 2018. She denies use of tobacco or alcohol and is at low risk for addiction by the opioid risk tool score. PHYSICAL EXAMINATION: GENERAL: She is a pleasant female, alert and oriented. VITAL SIGNS: Blood pressure and vital signs are as noted above. MUSCULOSKELETAL: She has difficulty moving from sitting to standing position. Bilateral straight leg raising pain is noted. It is worse on the right than the left. She is markedly weak throughout her lower extremities. She has tenderness across her low back and there are no scars. She has limited range of motion. IMPRESSION: Chronic low back pain with radiculopathy following an L5-S1. X-ray [address] [address] PAIN MANAGEMENT CONSULTATION Name: CONSTANTINO KAMINSKI Room #: REG [id number] Admission: 01/13/20 Attend Phys: Alfonzo Vargas MD Discharge: Date of : 39 Report #: [id number] evidence of disk impingement on the S1 nerve root. RECOMMENDATIONS: Right L5-S1 transforaminal epidural injection under fluoroscopic guidance. We will bring her back to the clinic as soon as possible for injection. By: [id number] Alfonzo Vargas MD /geovany
[2020-01-13 13:09] VITALS: BP 117/46
--- NOTE | 2020-01-13 13:18 | NUR ---
Pain Clinic Assessment: 1. History of Osteoarthritis: BACK History of Rheumatoid Arthritis: NO 2. Height: 5 ft. 5 in. 165.1 cm. Weight: 156.6 lb. oz. 71.033 kg. Patient's BMI: 26.1 3. Vital Signs: BP: 117/46 Pulse: 64 Resp: 16 Temp: 02 Sat: 98 ECG Mon: 4. Pain Intensity: 3-4; 7 AT WORST 5. Fall Risk: Dizziness: N Needs help standing or walking: N Fallen in the last 3 months: N Fall risk comments: 6. Patient on Blood Thinner: None 7. History of Hypertension: Y 8. Opioid Therapy greater than 6 weeks: Y Opiate Contract Signed: 12/07/18 9. Risk Assessment Tool Provided: LOW RISK 1 10. Functional Assessment Tool: 11. Recreational Drug Use: Never Drug Type: Tobacco Use: Former Smoker Tobacco Type: Amount or Packs/day: How Many Years: Alcohol Use: No Frequency: Quant:
== END ==
LOC: PAIN 07:06
PROVIDERS: ATTEND Anesthesiology Pain Medicine
DX: M54.17 Radiculopathy, lumbosacral region (principal); M17.0 Bilateral primary osteoarthritis of knee; M16.0 Bilateral primary osteoarthritis of hip

== ENCOUNTER → 2020-02-18 | Outpatient (CLI) | payer OTHER ==
[~2020-02-18] MED LIST changes: +FUROSEMIDE 20 M20 MG PO; -FUROSEMIDE 40 M40 M1 PO; -LEVOTHYROXIN0.175 MG PO; +SYNTHROID150 MCG PO
== END ==
LOC: SJCVCIMAG 08:43
PROVIDERS: ATTEND Internal Medicine
DX: I08.8 Other rheumatic multiple valve diseases (principal); R94.31 Abnormal electrocardiogram [ECG] [EKG]; I44.0 Atrioventricular block, first degree; I49.1 Atrial premature depolarization; I11.9 Hypertensive heart disease without heart failure; J44.9 Chronic obstructive pulmonary disease, unspecified; E78.5 Hyperlipidemia, unspecified; G20 Parkinson's disease; Z79.899 Other long term (current) drug therapy; Z87.891 Personal history of nicotine dependence

== ENCOUNTER → 2020-02-21 | Outpatient (CLI) | payer OTHER ==
[~2020-02-21] VITALS: Ht 165.1 cm; Wt 71.0 kg
--- NOTE | ~2020-02-21 | HPC ---
[facility] [place] [address] PAIN MANAGEMENT CONSULTATION Name: CONSTANTINO KAMINSKI Room #: REG Kirsty Reina.#: [id number] Admission: 02/21/20 Attend Phys: Alfonzo Vargas MD Discharge: Date of : 39 Report #: [id number] THIS REPORT FOR: cc: Williams Fields MD, Bernard O. MD Morgan,Alfonzo Will MD ~ CC: Williams Vargas DATE OF SERVICE: 02/21/2020 Followup visit for lumbar radiculopathy. The patient returns to the pain clinic today for a transforaminal epidural injection. She has had intermittent injections periodically over the years and has always responded favorably. Her last injection was performed on the right, but today she complains that her pain is more on the left and it follows an L4-L5, L5-S1 distribution. There have been no significant changes since her last visit other than the migratory nature of her pain. I reviewed her last injection films performed in 06/2019. She reports that was helpful and allowing her to be much more active and functional. Medications have been reviewed and reconciled. She is on no blood thinners. Her last visit on 01/12/2019 was also reviewed and she reports no significant changes in her overall health history since that time. She has returned today for injection. PQRS review is positive for osteoarthritis of a diffuse nature. Most of her pain is spondylitic in the back. Her BMI has been stable at 26.1. Vital signs: Blood pressure 131/48, heart rate 60, respirations 14, O2 sat 98, pain intensity 5/10 if she takes her medicine. She needs help walking and standing. She is in a wheelchair today. She is on oxygen 24x7 and is also wearing oxygen. She denies dizziness. She has been cautious, last fall was over 3 months ago. The patient does not take blood thinners. She is treated for hypertension. She is on an opioid agreement with our clinic and it was last signed on 12/07/2018. She is considered at low risk for addiction. She denies use of tobacco, but is a former smoker. Denies use of alcohol. PHYSICAL EXAMINATION: She is in a wheelchair. Pain is across her low back. She has positive straight leg raising on the left that reproduces symptoms that follow an L5-S1, L4-L5 distribution. X-rays reviewed show paracentral disk extrusion posterior cephalad to the L5 [address] [address] PAIN MANAGEMENT CONSULTATION Name: CONSTANTINO KAMINSKI [id number] Admission: 02/21/20 Attend Phys: Alfonzo Vargas MD Discharge: Date of : 39 Report #: [id number] vertebral body. Decided to repeat the injection today using a transforaminal approach on the left. PROCEDURE: Left transforaminal epidural injection at L4-L5 under fluoroscopic guidance. After informed consent, she was taken to fluoroscopic suite, placed prone, skin prepped with ChloraPrep. Skin anesthetized over the L4-L5 neural foramen. Using triplanar fluoroscopic views, I advanced the needle into the neural foramen at that level and there was an obvious grade 1 spondylolisthesis at L4-L5. It was then followed by 3 mL of 0.5% lidocaine mixed with 80 mg of triamcinolone. She tolerated the procedure well and there were no complications. Followup visit planned on an as needed basis for medication management and repeat injections. By: [id number] Alfonzo Vargas MD /nt
[2020-02-21 10:43] VITALS: BP 131/48
--- NOTE | 2020-02-21 11:17 | NUR ---
Pain Clinic Assessment: 1. History of Osteoarthritis: BACK History of Rheumatoid Arthritis: NO 2. Height: 5 ft. 5 in. 165.1 cm. Weight: 156.6 lb. oz. 71.033 kg. Patient's BMI: 26.1 3. Vital Signs: BP: 131/48 Pulse: 60 Resp: 14 Temp: 02 Sat: 98 ECG Mon: 4. Pain Intensity: 5 WITH MEDS 5. Fall Risk: Dizziness: N Needs help standing or walking: Y Fallen in the last 3 months: N Fall risk comments: 6. Patient on Blood Thinner: None 7. History of Hypertension: Y 8. Opioid Therapy greater than 6 weeks: Y Opiate Contract Signed: 12/07/18 9. Risk Assessment Tool Provided: LOW RISK 1 10. Functional Assessment Tool: 11. Recreational Drug Use: Never Drug Type: Tobacco Use: Former Smoker Tobacco Type: Amount or Packs/day: How Many Years: Alcohol Use: No Frequency: Quant:
== END | disposition home or self-care (01) ==
LOC: PAIN 07:05
PROVIDERS: ATTEND Anesthesiology Pain Medicine
DX: M54.16 Radiculopathy, lumbar region (principal); G89.29 Other chronic pain; I10 Essential (primary) hypertension; M19.90 Unspecified osteoarthritis, unspecified site; Z98.890 Other specified postprocedural states; Z79.899 Other long term (current) drug therapy; Z87.891 Personal history of nicotine dependence; Z88.8 Allergy status to other drugs, medicaments and biological substances